=== PATIENT | male | born 2000 | race Caucasian/White ===

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

== ENCOUNTER 2022-06-27 22:56 | Emergency (ER) | payer BC ==
[~2022-06-27] VITALS: Ht 185.4 cm; Wt 87.7 kg
[2022-06-27 22:58] VITALS: TEMP 97.8
[2022-06-28] MEDS ORDERED: CEPHALEXIN500 M1 PO (00:17)
[2022-06-28 00:30] VITALS: BP 129/72; PULSE 80
== END 2022-06-28 00:35 | disposition home or self-care (01) ==
LOC: COL.ER 22:56
DX: S92.425A Nondisplaced fracture of distal phalanx of left great toe, initial encounter for closed fracture (principal); W20.8XXA Other cause of strike by thrown, projected or falling object, initial encounter